=== PATIENT | female | born 1950 | race African-American/Black ===

== ENCOUNTER 2024-06-30 17:35 | Inpatient (IN) | payer OTHER, MEDICAID ==
[~2024-06-30] VITALS: Ht 167.6 cm; Wt 113.0 kg
[2024-06-30] MEDS: MIDAZOLAM HCL 2 MG/2 ML VIAL IM ONE (18:36)
[2024-06-30] MEDS ORDERED: VANCOMYCIN 1000MG/250ML 250 ML IV SCH (18:45)
[2024-06-30] MEDS ORDERED: VANCOMYCIN 1G PREMIX 200 ML IV NR (19:00)
[2024-06-30 19:02] LABS: CLARITY URINE TURBID (CLEAR); COLOR URINE DARK YELLOW (YELLOW); GLUCOSE URINE NEGATIVE (NEGATIVE); KETONES URINE TRACE (NEGATIVE); LEUKOCYTE ESTERASE URINE 3+ (NEGATIVE); NITRITE URINE NEGATIVE (NEGATIVE); OCCULT BLOOD URINE 2+ (NEGATIVE); PH URINE 6.5 (4.5-8.0); PROTEIN URINE 2+ (NEGATIVE); SPECIFIC GRAVITY URINE 1.014 (1.005-1.030)
[2024-06-30 19:19] LABS: BACTERIA URINE 3+; SQUAMOUS EPITHELIAL CELL URINE 1+ /lpf (RARE/1+)
[2024-06-30 19:20] LABS: WBC URINE TNTC /hpf (0-2); YEAST URINE 1+
[2024-06-30] MEDS ORDERED: MIDAZOLAM HCL 2 MG/2 ML VIAL IM ONE (20:15)
[2024-06-30] MEDS ORDERED: HALOPERIDOL LACTATE 5MG/ML VIAL IM ONE (20:15)
[2024-06-30] MEDS: DIPHENHYDRAMINE 50MG/ML VIAL IM ONE (20:49)
[2024-06-30] MEDS: OLANZAPINE 10 MG/VIAL IM ONE (20:50)
[2024-06-30] MEDS: PIPERACILLIN/TAZO 3.375G/50ML 50 ML IV SCH (21:54)
[2024-06-30] MEDS: SODIUM CHLORIDE 0.9% 1000ML BAG (SEPSIS BOLUS) IV ONE (21:54)
[2024-06-30 22:00] VITALS: BP 106/52; PULSE 75; RESP 24; TEMP 37.9192
[2024-06-30] MEDS: ACETAMINOPHEN 325MG TABLET PO ONE (22:07)
[2024-06-30] MEDS ORDERED: DEXTROSE 50% WATER 50ML SYRINGE IV PRN (22:15)
[2024-06-30] MEDS ORDERED: IPRATROPIUM/ALBUTEROL 0.5-3(2.5)MG/3ML NEB HHN PRN (22:15)
[2024-06-30] MEDS ORDERED: ACETAMINOPHEN 325MG TABLET PO PRN ×2 (22:15)
[2024-06-30] MEDS ORDERED: ONDANSETRON HCL 4MG/2ML INJ IV PRN (22:15)
[2024-06-30] MEDS ORDERED: GUAIFENESIN 200MG/10ML SUGAR FREE UDC PO PRN (22:15)
[2024-06-30] MEDS ORDERED: DOCUSATE SODIUM 100MG CAPSULE PO PRN (22:15)
[2024-06-30] MEDS ORDERED: ENOXAPARIN 40MG/0.4ML SYR SUBCUT SCH (22:15)
[2024-06-30] MEDS ORDERED: LORAZEPAM 0.5MG TABLET PO PRN (22:15)
[2024-06-30] MEDS ORDERED: CLONIDINE 0.1MG TABLET PO PRN (22:15)
[2024-06-30 22:59] LABS: HEMATOCRIT 34.2 % (36.0-48.0); MEAN CORPUSCULAR HEMOGLOBIN 29.7 pg (28.0-32.0); MEAN CORPUSCULAR HGB CONC 32.1 g/dL (31.0-37.0); MEAN CORPUSCULAR VOLUME 92.6 fL (81.0-99.0); PLATELET 222 x1000/uL (130-400); RED BLOOD CELL COUNT 3.69 mill/uL (4.2-5.4); RED CELL DISTRIBUTION WIDTH 17.9 % (11.6-14.6); WHITE BLOOD COUNT 7.3 x1000/uL (4.5-11.0)
[2024-07-01] MEDS ORDERED: CEFTRIAXONE 2GM/50ML 50 ML IV SCH (05:00)
[2024-07-01] MEDS ORDERED: PIPERACILLIN/TAZO 3.375G/50ML 50 ML IV SCH (06:00)
[2024-07-01] MEDS ORDERED: VANCOMYCIN 1.5GM/250ML 250 ML IV NR (06:30)
[2024-07-01 06:49] VITALS: BP 103/42; PULSE 89; RESP 18; TEMP 37.89192; O2SAT 96
[2024-07-01] MEDS: BLOOD SUGAR DIAGNOSTIC STRIP TEST SCH (07:14)
[2024-07-01] MEDS: INSULIN LISPRO 100 UNITS/ML SUBCUT SCH (07:14)
[2024-07-01 12:00] VITALS: BP 119/50; PULSE 100; RESP 18; TEMP 36.61404; O2SAT 98
[2024-07-01] MEDS: SODIUM CHLORIDE 0.9% 1,000 ML IV SCH (13:24)
[2024-07-01 15:01] VITALS: BP 125/55; PULSE 101; RESP 18; TEMP 36.72516; O2SAT 98
[2024-07-01] MEDS: CEFTRIAXONE 2GM/50ML 50 ML IV SCH (15:57)
[2024-07-01 16:00] VITALS: BP 127/68; PULSE 90; RESP 19; TEMP 36.16956; O2SAT 97
[2024-07-01] MEDS: VANCOMYCIN 2,000 MG in DEXT 5% WATER 500 ML IV SCH (16:04)
[2024-07-01] MEDS: FAMOTIDINE 20MG TABLET PO SCH (21:00)
[2024-07-02] VITALS (7 sets, daily range): BP systolic 101–123; BP diastolic 33–60; PULSE 90–98; RESP 16–20; TEMP 36.114–37.11408; O2SAT 96–100
[2024-07-02 06:55] LABS: HEMATOCRIT 31.3 % (36.0-48.0); HEMOGLOBIN 10.1 g/dL (12.0-16.0); MEAN CORPUSCULAR HEMOGLOBIN 29.1 pg (28.0-32.0); MEAN CORPUSCULAR HGB CONC 32.4 g/dL (31.0-37.0); MEAN CORPUSCULAR VOLUME 90.1 fL (81.0-99.0); PLATELET 200 x1000/uL (130-400); RED BLOOD CELL COUNT 3.48 mill/uL (4.2-5.4); RED CELL DISTRIBUTION WIDTH 16.5 % (11.6-14.6); WHITE BLOOD COUNT 5.1 x1000/uL (4.5-11.0)
[2024-07-02 07:06] LABS: CARBON DIOXIDE 27 mEq/L (21-32); CHLORIDE 106 mEq/L (98-107); POTASSIUM 3.5 mEq/L (3.5-5.1); SODIUM 141 mEq/L (136-145)
[2024-07-02 07:07] LABS: CALCIUM 8.5 mg/dL (8.7-10.4)
[2024-07-02 07:12] LABS: GLUCOSE 252 mg/dL (70-105); UREA NITROGEN BLOOD 12 mg/dL (9-23)
[2024-07-02 07:14] LABS: PHOSPHORUS 2.2 mg/dL (2.5-4.9)
[2024-07-02] MEDS: ENOXAPARIN 30MG/0.3ML SYR SUBCUT SCH (08:29)
[2024-07-02 09:00] LABS: TRIGLYCERIDE 103 mg/dL (0-150)
[2024-07-02 09:01] LABS: LDL CHOLESTEROL 44 mg/dL (5-100); TROPONIN I HIGH SENSITIVITY 7 ng/L (3.0-34)
[2024-07-02 09:02] LABS: ALANINE AMINOTRANSFERASE 10 IU/L (10-49); ALBUMIN 2.8 g/dL (3.2-4.8); ASPARTATE AMINOTRANSFERASE 20 IU/L (<34); BILIRUBIN DIRECT 0.3 mg/dL (<=3.0); BILIRUBIN TOTAL 0.5 mg/dL (0.1-1.0); CHOLESTEROL 93 mg/dL (<200); HDL CHOLESTEROL 28 mg/dL (>65)
[2024-07-02 09:03] LABS: PROTEIN TOTAL 5.5 g/dL (6.0-8.3)
[2024-07-02] MEDS ORDERED: METO-539 PO (11:30)
[2024-07-02] MEDS: METOPROLOL TARTRATE 50MG TABLET PO SCH (11:30)
[2024-07-02] MEDS ORDERED: LISI2.5T47 MT (14:05)
[2024-07-02] MEDS ORDERED: NITR-87 MT (14:06)
[2024-07-02] MEDS ORDERED: OMEP10CA5 MT (14:06)
[2024-07-02] MEDS ORDERED: WARF2.5T83 MT (14:07)
[2024-07-02] MEDS ORDERED: CEPH250C2 MT (14:07)
[2024-07-02] MEDS ORDERED: DESM0.1T MT (14:08)
[2024-07-02] MEDS ORDERED: FURO-152 MT (14:08)
[2024-07-02] MEDS ORDERED: SENN-362 MT (14:09)
[2024-07-02] MEDS ORDERED: TRAM100C3 MT (14:15)
[2024-07-02] MEDS ORDERED: VANCOMYCIN 1G PREMIX 200 ML IV SCH (16:00)
== END 2024-07-02 20:01 | disposition short-term general hospital (02) | DRG 871 ==
LOC: ER 17:35 → EDBEDREQTM 20:20 → EDBEDREQ 20:20 → 5WST 07-01 01:25 → 7EST 07-01 03:42
PROVIDERS: ADMIT Internal Medicine; ATTEND Internal Medicine
DX: A41.89 Other specified sepsis (principal); R65.21 Severe sepsis with septic shock; N39.0 Urinary tract infection, site not specified; D64.9 Anemia, unspecified; L89.621 Pressure ulcer of left heel, stage 1; L89.611 Pressure ulcer of right heel, stage 1; L89.329 Pressure ulcer of left buttock, unspecified stage; E11.9 Type 2 diabetes mellitus without complications; Z53.20 Procedure and treatment not carried out because of patient's decision for unspecified reasons; I10 Essential (primary) hypertension; I48.91 Unspecified atrial fibrillation; Z87.891 Personal history of nicotine dependence; Z86.12 Personal history of poliomyelitis; Z79.4 Long term (current) use of insulin
CPT/HCPCS: 36415; 71045; 80048; 80061; 80076; 81003; 82962; 83036; 83605; 83735; 84100; 84484; 85027; 87106; 93005; 93306; 93970; 99291; J0696; J1200; J1815; J2250; J2543; J3370; J3490; J7030; J7060